=== PATIENT | male | born 1980 | race Caucasian/White ===

== ENCOUNTER 2017-05-10 12:01 | Emergency (ER) | payer MEDICAID, OTHER ==
[~2017-05-10] VITALS: Ht 170.2 cm; Wt 87.5 kg
[2017-05-10 12:21] VITALS: Ht 170.2 cm; Wt 87.5 kg
[2017-05-10] MEDS ORDERED: HYDROCODONE/APAP (5/325) TAB PO ONE (14:30)
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
--- NOTE | 2017-05-10 15:05 | RADRPT ---
PROCEDURE: XR Chest. CLINICAL INDICATION: chest pain TECHNIQUE: Single frontal view of the chest was obtained COMPARISON: None FINDINGS: The heart and mediastinum are within normal limits. The lungs are clear. There is no pleural effusion or pneumothorax. RPTAT: AA IMPRESSION: No acute disease. .Donaldo Oliver MD, Date Time Electronically viewed and signed by .Donaldo Oliver MD, on 05/10/2017 15:05 .S/
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
[2017-05-10] MEDS ORDERED: NAPR-260 PO (15:30)
[2017-05-10] MEDS ORDERED: HYDR-906 PO (15:30)
[2017-05-10] MEDS ORDERED: NEOM1PAC TP (15:32)
== END 2017-05-10 15:44 | disposition home or self-care (01) ==
LOC: FTE 12:01
DX: S22.31XA Fracture of one rib, right side, initial encounter for closed fracture (principal); R51 Headache; Y08.89XA Assault by other specified means, initial encounter
CPT/HCPCS: 70450; 70486; 71010; 71100; Z7502; Z7610